=== PATIENT | female | born 1955 | race Caucasian/White ===

== ENCOUNTER 2016-11-28 08:16 | Day surgery (SDC) | payer OTHER ==
[~2016-11-28] VITALS: Ht 162.6 cm; Wt 60.6 kg
[2016-11-28] VITALS (11 sets, daily range): BP systolic 101–124; BP diastolic 62–75; PULSE 51–60; RESP 9–16; O2SAT 94–100
[~2016-11-28 08:16] MED LIST: ACET325T51 PO; AMLO5TAB2 PO; ATEN100T PO; BUPR-97 PO; CeFAZolin 2 Gm/50 mL D5W IV Premix IV SCH; HYDR25TA4 PO; PREC VG
[2016-11-28] MEDS ORDERED: fentaNYL-PF 50 mCg/mL 2 mL Inj ONE (08:17)
[2016-11-28] MEDS ORDERED: Ondansetron 2 mg/mL 2 mL Inj ONE (08:17)
[2016-11-28] MEDS ORDERED: Dexamethasone 4 mg/mL Inj ONE (08:17)
[2016-11-28] MEDS ORDERED: Propofol 10,000 mCg/mL 20 mL Inj ONE (08:17)
[2016-11-28] MEDS: Lactated Ringer's 1,000 ML IV SCH ×2 (08:31→09:30)
[2016-11-28] MEDS ORDERED: oxyCODONE-Acetamin 5-325 mg Tablet PO PRN (09:55)
[2016-11-28] MEDS ORDERED: Lidocaine 1%-Epi 1:100,000 20 mL Inj INFILTRATE ONE (10:34)
--- NOTE | 2016-11-28 11:06 | PCM.HPANE ---
Patient Data Date of Service: Nov 28, 2016 (1006) Surgeon Admitting Provider: Attending Provider:Joaquin Blanco DO Primary Care Physician:Dandy Martin MD Other Provider:Pepper Adorno Anesthesia Reason for Visit Right 2 Part Intra-Articular Distal Radius Fractur Ht/WT & BMI Height (Feet): 5 Height (Inches): 4 Weight (Kilograms): 60.6 Body Mass Index 22.00 Allergies Coded Allergies: No Known Allergies (Unverified , 11/24/16) Past Anesthesia History Anesthesia History: Denies:: Abnormal Airway, Anesthesia Reactions, Difficult Intubation, Fam Anesthesia Reaction, Fam Malignant Hypertherm, Malignant Hyperthermia Diabetes History Hx Diabetes?: No MRSA MRSA: No Medications Hypertension Medication: Yes Home Meds Incl Beta Gumaro: Yes Date Beta Gumaro Taken: Nov 28, 2016 Time Beta Gumaro Taken: 629 Reported Medications Bupropion ER (Wellbutrin XL)150 Mg Tab.[id number] Mg PO DAILY Ref 0 11/24/16 Acetaminophen 325 Mg [id number] Mg PO Q4H PRN For Pain Ref 0 11/24/16 Hydrochlorothiazide 25 Mg [id number] Mg PO DAILY 30 Days Ref 0 11/24/16 Atenolol 100 Mg [id number] Mg PO DAILY Ref 0 11/24/16 Amlodipine 5 Mg Tablet5 Mg PO DAILY Ref 0 11/24/16 Discontinued Reported Medications Estrogens Conjugated (Premarin)1 Gm Vagcream1 Gm VG 2xweekly #1 TUBE Ref 0 11/24/16 History History of ENT Problems?: Yes HEENT History: Denies:: Abnormal Airway Cataracts Difficult Intubation Dysphagia Glaucoma Hearing Problem Sinus Problem TMJ Denture Type: None Teeth Condition: Within Normal Limits Hx of Heart Problems?: Yes Cardiovascular History: Positive for:: Hypertension Denies:: AICD Abdominal Aortic Aneurism Atrial Fibrillation Cardiac Surgery Edema Heart Murmur Irregular Heartbeat Pacemaker Peripheral Vascular Rheumatic Fever Hx of Respiratory Problem?: No Respiratory History: Denies:: Asthma COPD Emphysema Oxygen Administration Pneumonia Tuberculosis Use of C-PAP Machine Use of Inhalers / NEBS Hx Neurologic Problems?: No Neurological History: Denies:: CVA Headaches Multiple Sclerosis Parkinson's Disease Seizures Hx of GI Problems?: No Hx of Problems?: No Genitourinary History: Denies:: Kidney Stones Urinary Tract Infection Female Hx: Denies:: Currently Problems with Breasts? Skin History: Denies:: History Skin Disorders? Pressure Ulcers Hx Musculoskeletal Problems?: Yes Musculoskeletal History: Positive for:: Musculoskeletal Trauma (right distal radius fx current admission problem) Denies:: Fibromyalgia Joint Replacement Myasthenia Gravis Osteoarthritis Rheumatoid Arthritis Systemic Lupus Hx of Psycho/Social Problems?: Yes Psycho Social History: Positive for:: Hx Depression Hx Surgeries?: Yes (appe, tubal) Hx Any Other Health Problems?: Yes Other History: Denies:: Cancer (pre cervical cancer ) Thyroid Disease (years ago not since ) History Blood Transfusions: Positive for:: Accept Blood Products? Denies:: Blood Transfusions Hx Diabetes: No Hx Alcohol Use: YesAlcoholic Drinks Per Day: one drink dailyHx Substance Use: NoHave You Smoked inLast 12 mo: No Stop/Bang S-Snoring: Do You Snore Loudly: No T-Tired: feel tired, fatigued: No O-Obsered: Observed not breath: No P-Blood Pressure: treated: No B- Body Mass Index > 35 kg/m2: No A- Age over 50: Yes N- Neck Large Circumference: No G- Gender Male: No ERIKA Total Score: 1 Risk Assessment Category Category 1A: Patient has history of documented sleep apnea, and HAS NOT received any narcotic, sedative or anesthesia administration during this stay. Category 1B: Patient has history of documented sleep apnea, and HAS received any narcotic , sedative or anesthesia administration during this stay Category 2: Patient has SUSPECTED Obstructive Sleep Apnea, and HAS received any narcotic , sedative or anesthesia administration during this stay. Category 3: Patient has SUSPECTED Obstructive Sleep Apnea and HAS NOT received narcotic, sedative or anesthesia administration during this stay. Category 4: Outpatient in Procedural Areas with known sleep apnea or who screen positive for High Risk via the STOP/BANG questionnaire. Exam Exam Vital Signs Vital Signs Date Time Temp Pulse Resp B/P Pulse Ox O2 Delivery O2 Flow Rate FiO2 11/28/16 08:43 36.2 60 16 119/73 98 Room Air General Appearance: Alert, Oriented X3 HEENT/AIRWAY: MP 1 Lungs: Clear to Auscultation Heart: Exam Unremarkable Meds/Labs/Diagnostics Admission Meds Current Medications Cefazolin Sodium/ Dextrose 2 gm/ Premix 50 ml @ 100 mls/hr PREOP IV Last administered on 11/28/16t 10:06; Start 11/28/16 at 06:00; Stop 11/28/16 at 18:00 Lactated Ringer's (Lr) 1,000 ml @ 120 mls/hr Q8H20M IV Last administered on 09:30; Start 11/28/16 at 05:00; Stop 11/28/16 at 13:19 Lidocaine/ Epinephrine (Xylocaine 1%-Epinephrine 1:100,000 Inj) 20 ml STK-MED ONCE INFILTRATE Last administered on 11/28/16 10:34; Start 11/28/16 at 10:34; Stop 11/28/16 at 10:39; Status DC Plan Impression Patient chart reviewed, patient interviewed and anesthestic plan with risks, benefits, and alternatives discussed, and informed consent obtained. NPO per Anesth. Guidelines: Yes ASA Physical Status: ASA2 Mod Systemic Disease Anesthetic Plan: GA Bene/Risks/Altern/Consents: Yes HP Complete Prior to Induction: Yes Donald Hammer MD Nov 28, 2016 11:06
[2016-11-28] MEDS ORDERED: Lactated Ringer's 1,000 ML IV SCH (11:08)
[2016-11-28] MEDS ORDERED: Lactated Ringer's 500 ML IV PRN (11:08)
--- NOTE | 2016-11-28 11:08 | PCM.ANEP1 ---
Post Anesthesia PACU Phase 1 Assessment Vital Signs 36.0, 118/75, 55, 12, 100% Vital Signs Date Time Temp Pulse Resp B/P Pulse Ox O2 Delivery O2 Flow Rate FiO2 11/28/16 08:43 36.2 60 16 119/73 98 Room Air Anesthetic Administered: GA Level of Alertness: Awake, talking WHEAT's with Equal Strength: Yes Pain: No Pain Scale Score: 0 Nausea or Vomiting: No CV Function & Hydration Stable: Yes Airway Device: none Lungs: Clear to Auscultation Dermatome Level: Full Sensation Summary uneventful GA PACU Phase 2 Assessment Complications: No Follow up Care: No Patient Instructions Provided: N/A Donald Hammer MD Nov 28, 2016 11:08
[2016-11-28] MEDS ORDERED: Ondansetron 2 mg/mL 2 mL Inj IVPUSH PRN (11:10)
[2016-11-28] MEDS ORDERED: EPHEDrine Sulfate 50 mg/mL Inj IVPUSH PRN (11:10)
[2016-11-28] MEDS ORDERED: Dexamethasone 4 mg/mL Inj IVPUSH PRN (11:10)
[2016-11-28] MEDS ORDERED: MetoCLOpramide 5 mg/mL 2 mL Inj IVPUSH PRN (11:10)
[2016-11-28] MEDS ORDERED: Phenylephrine 10,000 mCg/mL Inj IVPUSH PRN (11:10)
[2016-11-28] MEDS: fentaNYL-PF 50 mCg/mL 2 mL Inj IVPUSH PRN ×3 (11:15→11:31)
[2016-11-28] MEDS ORDERED: HYDROmorphone 1 mg/mL Inj ONE (11:26)
[2016-11-28] MEDS ORDERED: HYDROmorphone 1 mg/mL Inj IVPUSH PRN (11:35)
--- NOTE | 2016-11-28 13:52 | OP ---
[address] [address] OPERATIVE REPORT PATIENT: VANE ZAMUDIO : 1955 MR#: [id number] ADMIT: 11/28/2016 JOB ID: [id number] DATE OF SURGERY: 11/28/2016 PREOPERATIVE DIAGNOSIS(ES): Right two-part intra-articular distal radius fracture with ulnar styloid fracture. POSTOPERATIVE DIAGNOSIS(ES): Right two-part intra-articular distal radius fracture with ulnar styloid fracture. PROCEDURE: Open reduction, internal fixation right two-part intra-articular distal radius fracture with closed treatment of an ulnar styloid fracture. SURGEON: Joaquin Blanco D.O. HOSPITAL MEDICAL ASSISTANT: Quinn Francisco PGY1 ANESTHESIA: General. HISTORY: The patient is a pleasant 61-year-old female that fell at work a week prior landing directly onto her right wrist. She originally thought it was a sprain and eventually went to the Urgent Care and was diagnosed with a distal radius ulnar styloid fracture as her symptoms were not improved. She was placed in a sugar-tong splint and advised to followup with me in the office. Upon presentation, x-rays were repeated. The patient demonstrated two part intra-articular distal radius fracture. There was dorsal angulation of 15 degrees and loss of radial height and inclination. I discussed with the patient the risks, benefits, alternatives and indications to proceed with an open reduction and internal fixation of the right distal radius fracture and possible fixation of the ulnar styloid fracture pending the stability of the DRUJ after the radius was fixed. She understood the risks include, but not limited to, neurovascular injury, tendon injury, infection, failure of fixation, stiffness, persistent pain, all of which may require further intervention. The patient had all questions answered. Consent was signed and placed in the chart. PROCEDURE IN DETAIL: The patient was brought to the operative suite and placed supine on the operating table. Surgical time-out was performed. Everyone in the room was in agreement. After appropriate anesthesia was obtained, a right upper arm tourniquet was applied and the right upper extremity was prepped and draped in a sterile fashion. Right upper extremity was then exsanguinated and tourniquet inflated to 250 mmHg. A standard FCR approach was utilized. The FCR sheath was exposed and the FCR tendon retracted ulnarly. Next the sub sheath was incised revealing underlying flexor pollicis longus, which was also retracted ulnarly. The pronator quadratus next was identified and released from its most distal radial margin. The fracture site was identified and manual reduction performed to reduce the dorsal angulation as well as the loss of radial height and tilt. The fracture reduction was verified under fluoroscopy. Next an Arthrex narrow volar distal radius plate was applied to the volar cortex of the distal radius and held provisionally with K-wires. The position of the plate was verified under fluoroscopy. A nonlocking screw was placed within the oblong hole of the shaft to pull the plate to the volar cortex of the distal radius. Completion of fixation was performed utilizing distal locking screws that were unicortical and the remaining shaft screws were filled with locking screws due to the poor purchase of the initial screw. The DRUJ was then stressed after fixation of the radius and was found to be stable compared to a preoperative examination of the contralateral side. Final radiographic projections on fluoroscopy utilized to verify anatomic reduction, appropriate placement of the hardware and appropriate length of all screws. Copious irrigation was performed followed by closure of the subcutaneous tissues with 4-0 Vicryl and 4-0 nylon for the skin. The patient was then placed in a well-padded well-molded volar resting splint. ESTIMATED BLOOD LOSS: Less than 5 cc. COMPLICATIONS: None. DISPOSITION: The patient tolerated the procedure well. Anesthesia was reversed and the patient was transferred back to recovery. POSTOPERATIVE PLAN: The patient will followup in the office in two weeks. Prior to this, she will see occupational therapy and may transition into a short-arm brace and start initiating some wrist range of motion exercises. IMPLANTS: Arthrex narrow volar distal radius plate with a combination of locking and nonlocking screws. [facility] CENTERJose C
== END 2016-11-28 23:59 | disposition home or self-care (01) ==
LOC: SAS 08:16
PROVIDERS: ATTEND Orthopaedic Surgery
DX: S52.571A Other intraarticular fracture of lower end of right radius, initial encounter for closed fracture (principal); S52.611A Displaced fracture of right ulna styloid process, initial encounter for closed fracture; W18.30XA Fall on same level, unspecified, initial encounter; Y93.01 Activity, walking, marching and hiking; Y92.89 Other specified places as the place of occurrence of the external cause; I10 Essential (primary) hypertension; F32.9 Major depressive disorder, single episode, unspecified; E78.5 Hyperlipidemia, unspecified
CPT/HCPCS: 25608; 25652; C1713; J0690; J1100; J1170; J1885; J2250; J2405; J3010; J7120